=== PATIENT | female | born 1980 | race Two or more races ===

== ENCOUNTER 2018-08-16 11:25 | Emergency (ER) | payer MEDICAID ==
[~2018-08-16] VITALS: Ht 162.6 cm; Wt 84.4 kg
[2018-08-16 12:11] VITALS: BP 121/86
== END 2018-08-16 13:34 | disposition home or self-care (01) ==
LOC: ER 11:33
DX: J02.9 Acute pharyngitis, unspecified (principal); H92.02 Otalgia, left ear; I10 Essential (primary) hypertension; E11.9 Type 2 diabetes mellitus without complications